=== PATIENT | female | born 1970 | race Caucasian/White ===

== ENCOUNTER 2016-11-26 12:33 | Outpatient (RCR) | payer OTHER | END 2016-12-09 | LOC: M ST 12:33 | PROVIDERS: ATTEND Otolaryngology | DX: Z51.89 Encounter for other specified aftercare (principal); E06.9 Thyroiditis, unspecified; R49.0 Dysphonia ==

== ENCOUNTER 2016-12-10 07:10 | Outpatient (RCR) | payer OTHER | END 2017-01-09 | LOC: M ST 07:10 | PROVIDERS: ATTEND Otolaryngology | DX: Z51.89 Encounter for other specified aftercare (principal); R49.0 Dysphonia ==

== ENCOUNTER → 2017-01-21 | Outpatient (REF) | payer OTHER | LOC: M LAB REF 17:30 | PROVIDERS: ATTEND Family Medicine | DX: E05.90 Thyrotoxicosis, unspecified without thyrotoxic crisis or storm (principal) ==

== ENCOUNTER 2017-02-20 09:10 | Outpatient (RCR) | payer OTHER | END 2017-03-11 | LOC: M ST 09:10 | PROVIDERS: ATTEND Otolaryngology | DX: Z51.89 Encounter for other specified aftercare (principal); R49.0 Dysphonia ==

== ENCOUNTER → 2017-04-19 | Outpatient (CLI) | payer OTHER ==
[2017-04-19 17:21] LABS: MAGNESIUM LEVEL 2.3 MG/DL (1.8-2.4)
[2017-04-25 00:06] LABS: ANTI-SACCHAROMYCES CEREV. IgA 36.1 Units (0.0-24.9); ANTI-SACCHAROMYCES CEREV. IgG 23.7 Units (0.0-24.9); ENDOMYSIAL ABY IgA Negative (Negative); TISSUE TRANSGLUTAMINASE IgG <2 U/mL (0-5)
== END ==
LOC: M WUC 14:55
PROVIDERS: ATTEND Internal Medicine Gastroenterology
DX: R49.8 Other voice and resonance disorders (principal); R13.10 Dysphagia, unspecified; K21.0 Gastro-esophageal reflux disease with esophagitis

== ENCOUNTER → 2017-04-29 | Outpatient (REF) | payer OTHER ==
[2017-05-13 12:21] LABS: CHYMOTRYPSIN, STOOL 1.6
== END ==
LOC: M LAB REF 13:22
PROVIDERS: ATTEND Internal Medicine Gastroenterology
DX: R49.8 Other voice and resonance disorders (principal); R13.10 Dysphagia, unspecified; K21.0 Gastro-esophageal reflux disease with esophagitis; K29.70 Gastritis, unspecified, without bleeding; K44.9 Diaphragmatic hernia without obstruction or gangrene; R19.7 Diarrhea, unspecified

== ENCOUNTER 2018-06-02 22:02 | Emergency (ER) | payer OTHER ==
[2018-06-02 22:55] LABS: BASO # 0.1 10^3/uL (0.0-0.2); BASO % 0.6 % (0.0-1.0); EOS # 0.2 10^3/uL (0.0-0.50); EOS % 1.8 % (0.0-3.0); HEMATOCRIT 38.3 % (36.0-47.0); IMMATURE GRANULOCYTE % 0.4 % (0-3.0); LYMPH # 2.3 10^3/uL (1.5-4.5); LYMPH % 27.9 % (24.0-44.0); MEAN CORPUSCULAR HEMOGLOBIN 32.3 pg (27.0-33.0); MEAN CORPUSCULAR HGB CONC 33.9 g/dl (32.0-36.5); MONO # 0.5 10^3/uL (0.0-0.8); MONO % 5.8 % (0.0-5.0); NEUTROPHILS # 5.3 10^3/uL (1.8-7.7); NEUTROPHILS % 63.5 % (36.0-66.0); PLATELET COUNT, AUTOMATED 243 10^3/uL (150-450); RED BLOOD COUNT 4.03 10^6/uL (4.00-5.40); RED CELL DISTRIBUTION WIDTH 12.8 % (11.5-14.5); WHITE BLOOD COUNT 8.3 10^3/uL (4.0-10.0)
[2018-06-02] MEDS: GI COCKTAIL 50ML BTL(HYOSCYAMINE/MAALOX/LIDOCAINE VISCOUS)(1:3:1) PO (22:58)
[2018-06-02 23:05] LABS: INR 1.06; PROTHROMBIN TIME 13.9 SECONDS (12.1-14.4)
[2018-06-02 23:06] LABS: PARTIAL THROMBOPLASTIN TIME 29.8 SECONDS (25.4-37.6)
[2018-06-02 23:10] LABS: D-DIMER QUANT < 270.0 ng/ml (<500)
[2018-06-02 23:19] LABS: ALBUMIN 3.6 GM/DL (3.2-5.2); ALBUMIN/GLOBULIN RATIO 1.29 (1.00-1.93); ALKALINE PHOSPHATASE 53 U/L (45-117); ALT/SGPT 21 U/L (12-78); ANION GAP 6 MEQ/L (8-16); AST/SGOT 14 U/L (7-37); BILIRUBIN,DIRECT < 0.1 MG/DL (0.0-0.2); BILIRUBIN,TOTAL 0.2 MG/DL (0.2-1.0); BLOOD UREA NITROGEN 17 MG/DL (7-18); CALCIUM LEVEL 8.5 MG/DL (8.5-10.1); CARBON DIOXIDE LEVEL 26 MEQ/L (21-32); CHLORIDE LEVEL 111 MEQ/L (98-107); CREATININE FOR GFR 0.84 MG/DL (0.55-1.30); GLOMERULAR FILTRATION RATE > 60.0 (>58); GLUCOSE, FASTING 122 MG/DL (70-100); POTASSIUM SERUM 3.8 MEQ/L (3.5-5.1); SODIUM LEVEL 143 MEQ/L (136-145); TOTAL PROTEIN 6.4 GM/DL (6.4-8.2)
[2018-06-02 23:27] LABS: C REACTIVE PROTEIN QUANTITATIV < 0.30 MG/DL (0.00-0.30); CPK CREATINE PHOSPHOKINASE 77 U/L (26-192); LIPASE 184 U/L (73-393); TROPONIN I < 0.02 NG/ML (< 0.10)
[2018-06-02] MEDS ORDERED: ISOVUE-370 76% 100ML VIAL (Q9967) As Ordered (23:51)
[2018-06-03] MEDS: ONDANSETRON 4MG/2ML VIAL (J2405) IV (00:16)
[2018-06-03] MEDS: MORPHINE 2 MG/ML 1ML SYRINGE (J2270) IV (00:17)
[2018-06-03] MEDS: NS 1,000 ML IV (00:19)
[2018-06-03 02:32] LABS: CPK CREATINE PHOSPHOKINASE 64 U/L (26-192); TROPONIN I < 0.02 NG/ML (< 0.10)
[2018-06-03] MEDS: OXYCODONE/APAP 5MG/325MG(BULK FOR ED) 1 TABLET PO (03:15)
== END 2018-06-03 03:24 | disposition home or self-care (01) ==
LOC: M ED 06-03 03:24
DX: R07.9 Chest pain, unspecified (principal); N90.89 Other specified noninflammatory disorders of vulva and perineum; K21.9 Gastro-esophageal reflux disease without esophagitis; K58.9 Irritable bowel syndrome, unspecified; G43.909 Migraine, unspecified, not intractable, without status migrainosus; E03.9 Hypothyroidism, unspecified; Z79.899 Other long term (current) drug therapy; Z79.82 Long term (current) use of aspirin; Z79.890 Hormone replacement therapy
CPT/HCPCS: J2405

== ENCOUNTER → 2019-10-05 | Outpatient (REF) | payer OTHER ==
[~2019-10-05] MED LIST: NEXI40CA PO
[2019-10-05 19:17] LABS: C REACTIVE PROTEIN QUANTITATIV < 0.30 MG/DL (0.00-0.30)
[2019-10-06 10:02] LABS: VITAMIN B12 LEVEL 370 PG/ML
[2019-10-06 10:03] LABS: FOLATE 6.4 NG/ML
== END ==
LOC: M LABNEURO 15:10
PROVIDERS: ATTEND Physician Assistant Medical
DX: H53.2 Diplopia (principal)

== ENCOUNTER → 2024-07-01 | Outpatient (CLI) | payer OTHER ==
[~2024-07-01] MED LIST changes: +CLIN1GEL TOP; +ESTR1DIS BC; +FREM225A SQ; +LANS30CA93 PO; +LEVO75TA4 PO; +TOPI-21 PO
== END ==
LOC: M ONCR 08:57
PROVIDERS: ATTEND General Practice
DX: D05.11 Intraductal carcinoma in situ of right breast (principal); Z79.620 Long term (current) use of immunosuppressive biologic; Z79.890 Hormone replacement therapy; Z79.899 Other long term (current) drug therapy; Z98.890 Other specified postprocedural states; Z80.6 Family history of leukemia; Z90.710 Acquired absence of both cervix and uterus

== ENCOUNTER → 2024-07-02 | Outpatient (CLI) | payer OTHER | LOC: M WHC 11:05 | PROVIDERS: ATTEND Internal Medicine Hematology & Oncology | DX: C50.919 Malignant neoplasm of unspecified site of unspecified female breast (principal) ==

== ENCOUNTER → 2024-07-03 | Outpatient (REF) | payer OTHER | LOC: M LAB REF 16:31 | PROVIDERS: ATTEND Nurse Practitioner Family | DX: R13.10 Dysphagia, unspecified (principal); R19.7 Diarrhea, unspecified; Z86.0101 Personal history of adenomatous and serrated colon polyps ==

== ENCOUNTER 2024-07-24 10:53 | Outpatient (RCR) | payer OTHER | END 2024-08-11 | LOC: M ONCR 10:53 | PROVIDERS: ATTEND General Practice | DX: Z51.0 Encounter for antineoplastic radiation therapy (principal); D05.11 Intraductal carcinoma in situ of right breast ==

== ENCOUNTER 2024-08-19 12:15 | Outpatient (RCR) | payer OTHER | END 2024-09-11 | LOC: M ONCR 12:15 | PROVIDERS: ATTEND General Practice | DX: Z51.0 Encounter for antineoplastic radiation therapy (principal); D05.11 Intraductal carcinoma in situ of right breast ==

== ENCOUNTER → 2025-02-16 | Outpatient (CLI) | payer OTHER | LOC: M ONCR 12:49 | PROVIDERS: ATTEND General Practice | DX: D05.11 Intraductal carcinoma in situ of right breast (principal); Z79.899 Other long term (current) drug therapy; Z92.3 Personal history of irradiation ==